=== PATIENT | female | born 1990 | race Caucasian/White ===

== ENCOUNTER 2016-09-19 03:19 | Emergency (ER) | payer OTHER ==
--- NOTE | ~2016-09-19 | CR142 ---
[facility] A Service of [facility] & [facility] RADIOLOGY TEXT RESULTS PATIENT: SHERIN TORRES LOCATION: [facility] : [birth year] UNIT #: [id number] AGE: [address]: RAMAN CAMACHO APRN SEX: F ORDER DR: [id number] [facility] [address] [place], [place] [address] [id number] E MR#: [id number] #: [id number] NAME: SHERIN TORRES : 1990 SEX: F STUDY DATE/TIME: 09/19/2016 4:39 UNIT: [facility] ROOM: STUDY DESCRIPTION: CR Hand Min 3 Views Rt Attending Physician: Raman Camacho Aprn Ordering Physician: Raman Camacho Aprn Primary Care Physician: Jean Marie Givens II, M.D. MEDICAL IMAGING REPORT This report is preliminary unless electronic signature is present EXAM Three views right hand 09/19/2016 HISTORY Laceration injury, possible radiopaque foreign body. Punched glass tonight. COMPARISON None. FINDINGS The patient is skeletally immature. No fracture or joint dislocation is identified. No retained radiopaque foreign body is seen in the soft tissues. IMPRESSION Normal 3 views of the right hand. Dictated by... Sherin Isabel M.D. THIS IS AN ELECTRONICALLY VERIFIED REPORT Sherin Isabel M.D. at 09/19/2016 9:49 PM MARITZA/goldie TD: 09/19/2016 06:23 JOB #: [id number] MEDICAL IMAGING REPORT Page 1 of 1 COPY
--- NOTE | ~2016-09-19 | CR286 ---
[facility] A Service of [facility] & [facility] RADIOLOGY TEXT RESULTS PATIENT: SHERIN TORRES LOCATION: [facility] : 86 UNIT #: [id number] AGE: [address]: RAMAN CAMACHO APRN SEX: F ORDER DR: [id number] [facility] [address] [place], [place] [address] [id number] E MR#: [id number] Acc #: [id number] NAME: SHERIN TORRES : 1990 SEX: F STUDY DATE/TIME: 09/19/2016 4:41 UNIT: [facility] ROOM: STUDY DESCRIPTION: CR Wrist W Navicular Min 3 Rt Attending Physician: Raman Camacho Aprn Ordering Physician: Raman Camacho Aprn Primary Care Physician: Jean Marie Givens II, M.D. MEDICAL IMAGING REPORT This report is preliminary unless electronic signature is present EXAM Four views right wrist 09/19/2016 HISTORY Right hand and wrist pain with laceration injuries after punching glass tonight. FINDINGS Wrist evaluation in multiple projections shows normal mineralization of the bony structures about the wrist and satisfactory articular relationship of the radius and ulna to the proximal carpal row and of the distal carpal segments to the metacarpal bases. There is no indication of fracture or dislocation, and no soft tissue radiopaque foreign body is present. No congenital defects are apparent. IMPRESSION Normal wrist. Dictated by... Sherin Isabel M.D. THIS IS AN ELECTRONICALLY VERIFIED REPORT Sherin Isabel M.D. at 09/19/2016 9:49 PM MARITZA/goldie TD: 09/19/2016 06:25 JOB #: [id number] MEDICAL IMAGING REPORT Page 1 of 1 COPY
== END 2016-09-19 06:29 | disposition home or self-care (01) ==
LOC: CED 03:19
DX: S61.411A Laceration without foreign body of right hand, initial encounter (principal); S63.501A Unspecified sprain of right wrist, initial encounter; K21.9 Gastro-esophageal reflux disease without esophagitis; F32.9 Major depressive disorder, single episode, unspecified; Z23 Encounter for immunization; W18.02XA Striking against glass with subsequent fall, initial encounter; Y92.009 Unspecified place in unspecified non-institutional (private) residence as the place of occurrence of the external cause
CPT/HCPCS: 29125; 73110; 73130; 90471; 90715; 99283